=== PATIENT | female | born 1965 | race Two or more races ===

== ENCOUNTER 2024-03-22 19:11 | Emergency (ER) | payer MEDICAID, OTHER ==
[~2024-03-22] VITALS: Ht 167.6 cm; Wt 50.0 kg
[2024-03-22] MEDS: HALOPERIDOL LACTATE 5 MG/ML INJ VIAL IM ONE (19:35)
[2024-03-22 19:38] VITALS: PULSE 104; RESP 16; O2SAT 97
[2024-03-22 20:15] LABS: Basophils # (auto) 0.1 10 ^3/uL (0-0.2); Basophils % (auto) 0.8 % (0.0-2.0); Eosinophils # (auto) 0.2 10 ^3/uL (0-0.8); Eosinophils % (auto) 2.2 % (0.0-7.0); Hematocrit 35.2 % (36.0-46.0); Hemoglobin 12.1 g/dL (12.2-16.2); Lymphocytes # (auto) 3.5 10 ^3/uL (0.4-5.4); Lymphocytes % (auto) 48.1 % (10.0-50.0); Mean Corpuscular Hemoglobin 33.4 pg (28.0-32.0); Mean Corpuscular Hgb Conc. 34.4 g/dL (32.0-36.0); Mean Corpuscular Volume 97.3 fL (80.0-100.0); Monocytes # (auto) 0.7 10 ^3/uL (0-1.3); Monocytes % (auto) 9.7 % (0.0-12.0); Neutrophils # (auto) 2.9 10 ^3/uL (1.6-8.6); Neutrophils % (auto) 39.2 % (37.0-80.0); Nucleated Red Blood Cells % 0.1 %; Platelet Count (auto) 259 10^3/uL (140-450); Red Blood Cells 3.62 10^6/uL (4.0-5.20); Red Cell Distribution Width 14.4 % (11.8-14.3); White Blood Cell 7.3 10^3/uL (4.4-10.8)
[2024-03-22 20:23] LABS: Chloride 110 mmol/L (98-107); Potassium 3.7 mmol/L (3.5-5.1); Sodium 142 mmol/L (136-145)
[2024-03-22 20:24] LABS: Anion Gap 10 (5-15); Calcium 9.8 mg/dL (8.7-10.4); Carbon Dioxide 22 mmol/L (20-30)
[2024-03-22 20:29] LABS: BUN/Creatinine Ratio 14.8 (10.0-20.0); Blood Alcohol 5.8 mg/dL (<10); Blood Urea Nitrogen 20 mg/dL (9-23); Glucose 108 mg/dL (74-106)
[2024-03-22 20:32] LABS: Acetaminophen < 2.0 UG/ML (10.0-20.0)
[2024-03-22 21:23] LABS: Salicylate < 3.0 mg/dL (2.8-20.0)
[2024-03-23 08:06] LABS: Urine Bacteria None Seen /hpf (None Seen)
[2024-03-23 08:13] VITALS: BP 126/77; TEMP 98.2
[2024-03-23 08:15] VITALS: PULSE 108; RESP 18; O2SAT 97
[2024-03-23 08:26] LABS: Urine Blood TRACE /uL (Negative); Urine Clarity Turbid (Clear); Urine Color Yellow (Yellow); Urine Protein, UAD 1+ (Negative); Urine Specific Gravity 1.029 (1.001-1.035); Urine Urobilinogen Normal (Negative); Urine WBC 12 /hpf (0 - 5); Urine pH 5.5 (5.0-9.0)
[2024-03-23 08:28] LABS: Amphetamine Screen, Urine Neg (NEGATIVE); Barbiturate Scree,Urine Neg (NEGATIVE); Benzodiazephine Screen, Urine Neg (NEGATIVE); Cannabinoid Screen, Urine Neg (NEGATIVE); Cocaine Screen, Urine Pos (NEGATIVE); Opiate Scree,Urine Neg (NEGATIVE); Phencyclidine Screen, Urine Pos (NEGATIVE)
== END 2024-03-23 12:21 | disposition home or self-care (01) ==
LOC: EDBD 19:11 → ER 19:11
DX: R45.851 Suicidal ideations (principal); R41.82 Altered mental status, unspecified; F20.9 Schizophrenia, unspecified; F10.90 Alcohol use, unspecified, uncomplicated; Y90.0 Blood alcohol level of less than 20 mg/100 ml
CPT/HCPCS: 36415; 80048; 80307; 80320; 80329; 81001; 85025; 96372; 99285; J1630